=== PATIENT | female | born 1930 | race African-American/Black ===

== ENCOUNTER → 2019-04-21 | Outpatient (CLI) | payer MEDICARE, MEDICAID ==
[2019-04-21 11:40] LABS: HEMATOCRIT 35.8 % (36-46); HEMOGLOBIN 11.7 g/dL (12.0-16.0)
[2019-04-21 12:21] LABS: % IRON SATURATION 28.6 % (22-44)
[2019-04-21 12:34] LABS: ALBUMIN 3.6 g/dL (3.4-5.0); BILIRUBIN,TOTAL 0.6 mg/dL (0.1-1.0); CALCIUM, TOTAL 10.1 mg/dL (8.8-10.5); CHOL/HDL RATIO 3.4 (3.9-5.7); CREATININE 1.22 mg/dL (0.60-1.30); PHOSPHORUS 3.7 mg/dL (2.5-4.9); POTASSIUM 4.2 mmol/L (3.5-5.1); TOTAL PROTEIN, SERUM 7.8 g/dL (6.4-8.2)
[2019-04-21 13:30] LABS: FOLATE SERUM 15.5 ng/mL (5.4-)
== END | disposition home or self-care (01) ==
LOC: LABPV 10:11
PROVIDERS: ATTEND Internal Medicine Nephrology
DX: I12.9 Hypertensive chronic kidney disease with stage 1 through stage 4 chronic kidney disease, or unspecified chronic kidney disease (principal); N18.3 Chronic kidney disease, stage 3 (moderate); D63.1 Anemia in chronic kidney disease; E78.49 Other hyperlipidemia
CPT/HCPCS: 82607; 82746; 83540; 83550; 83970; 84100; 85014; 85018

== ENCOUNTER → 2019-09-22 | Outpatient (CLI) | payer MEDICARE, MEDICAID ==
[2019-09-22 12:05] LABS: HEMATOCRIT 36.9 % (36-46); HEMOGLOBIN 12.2 g/dL (12.0-16.0)
[2019-09-22 12:10] LABS: APPEARANCE,URINE CLOUDY (CLEAR); BILIRUBIN,URINE NEGATIVE (NEGATIVE); GLUCOSE, URINE (UA) NEGATIVE (NEGATIVE); KETONES,URINE NEGATIVE (NEGATIVE); LEUKOCYTE ESTERASE ,URINE SMALL (NEGATIVE); NITRATE,URINE POSITIVE (NEGATIVE); OCCULT BLOOD,URINE SMALL (NEGATIVE); PROTEIN,URINE NEGATIVE (NEGATIVE); UROBILINOGEN,URINE 0.2 mg/dL (<=1.0)
[2019-09-22 12:23] LABS: % IRON SATURATION 35.6 % (22-44); CALCIUM, TOTAL 9.7 mg/dL (8.8-10.5); CHOL/HDL RATIO 3.1 (3.9-5.7); CREATININE 1.22 mg/dL (0.60-1.30); POTASSIUM 4.1 mmol/L (3.5-5.1)
[2019-09-22 12:24] LABS: BACTERIA,URINE Many /HPF (None Seen); SQUAMOUS EPITHELIAL CELL,UR Moderate /LPF (None Seen)
[2019-09-22 12:41] LABS: FOLATE SERUM 10.2 ng/mL (5.4-)
== END | disposition home or self-care (01) ==
LOC: LABPV 10:56
PROVIDERS: ATTEND Internal Medicine Nephrology
DX: I12.9 Hypertensive chronic kidney disease with stage 1 through stage 4 chronic kidney disease, or unspecified chronic kidney disease (principal); N18.3 Chronic kidney disease, stage 3 (moderate); E55.9 Vitamin D deficiency, unspecified; E78.5 Hyperlipidemia, unspecified; D63.1 Anemia in chronic kidney disease; R82.998 Other abnormal findings in urine
CPT/HCPCS: 82306; 82607; 82746; 83540; 83550; 85014; 85018; 87086